=== PATIENT | male | born 1965 | race Caucasian/White ===

== ENCOUNTER 2023-10-12 11:04 | Emergency (ER) | payer MEDICAID ==
[~2023-10-12] VITALS: Ht 175.3 cm; Wt 79.0 kg
[2023-10-12 11:21] VITALS: BP 138/74; PULSE 76; RESP 18; TEMP 97.2; O2SAT 100
== END 2023-10-12 12:53 | disposition home or self-care (01) ==
LOC: MED 11:04
DX: S83.91XA Sprain of unspecified site of right knee, initial encounter (principal); S86.911A Strain of unspecified muscle(s) and tendon(s) at lower leg level, right leg, initial encounter; I10 Essential (primary) hypertension; X50.1XXA Overexertion from prolonged static or awkward postures, initial encounter; Y93.89 Activity, other specified; Y92.89 Other specified places as the place of occurrence of the external cause; Y99.8 Other external cause status
CPT/HCPCS: 73590; 93971; 99284; Q0092